=== PATIENT | female | born 1945 | race Caucasian/White ===

== ENCOUNTER 2016-06-02 12:58 | Inpatient (IN) | payer OTHER ==
[~2016-06-02] VITALS: Ht 160 cm; Wt 116.9 kg
[~2016-06-02 12:58] MED LIST: DICL75TA2 PO; GLIP5TAB13 PO; Hydrocodone Bit/Acetaminophen PO; LOSA25TA5 PO; METO-448 PO; MUPI15CR9 TOP; VANC2PLA IVPB
[2016-06-02] MEDS ORDERED: morphine 4 MG/ML VIAL IV STA (13:52)
[2016-06-02] MEDS ORDERED: ONDANSETRON 4 MG INJ IV STA (13:52)
[2016-06-02 14:14] LABS: BASOPHILS % 0.4 % (0.0-2.0); CONDITION 1; EOSINOPHILS # 0.3 10^3/ul (0.0-0.5); EOSINOPHILS % 3.1 % (0.0-7.0); HEMATOCRIT 42.2 % (37.0-47.0); HEMOGLOBIN 14.4 g/dl (12.0-16.0); LYMPHOCYTES % 37.3 % (15.0-51.0); MEAN CORPUSCULAR HGB CONC 34.1 g/dl (32.0-37.0); MEAN CORPUSCULAR VOLUME 93.8 fl (82.0-101.0); MEAN PLATELET VOLUME 8.6 fl (7.4-10.4); MONOCYTE # 0.7 10^3/ul (0.3-0.9); MONOCYTES % 8.2 % (0.0-11.0); NEUTROPHIL # 4.1 10^3/ul (1.6-7.5); PLATELET COUNT 224 10^3/UL (140-440); RED BLOOD COUNT 4.49 10^6/ul (4.20-5.40); RED CELL DISTRIBUTION WIDTH 13.7 % (11.5-14.5)
[2016-06-02 14:28] LABS: ALBUMIN 3.7 g/dl (3.3-4.9)
[2016-06-02 14:29] LABS: POTASSIUM 4.8 mmol/L (3.5-5.1)
[2016-06-02 14:31] LABS: BILIRUBIN,INDIRECT 0.2 mg/dl (0-1.1); BILIRUBIN,TOTAL 0.2 mg/dl (0.2-1.3); CREATININE 0.43 mg/dl (0.44-1.00)
[2016-06-02 14:32] LABS: ALBUMIN/GLOBULIN RATIO 1.08; TOTAL PROTEIN 7.1 g/dl (6.1-8.1)
--- NOTE | 2016-06-02 16:15 | RADRPT ---
PROCEDURE: CT Abdomen and pelvis without contrast. CLINICAL INDICATION: Abdominal Pain TECHNIQUE: CT scan of the abdomen and pelvis with contrast was performed on a multidetector high-r esolution CT scan. . Coronal and sagittal reformatted images were obtained from the axial source i mages. Standard CT scan of the abdomen pelvis without contrast protocols were performed. The total exam CTDI equals 22.68 mGy and the total exam DLP equals 1328.04 mGy-cm. One or more of the following dose reduction techniques were used: - Automated exposure control. - Adjustment of the mA and/or kV according to patient size. Use of iterative reconstruction technique. COMPARISON: None FINDINGS: The heart is within normal limits in size. There is a 3.4 x 2.4 cm inhomogeneous soft tissue densit y seen posterior to the left atrium and along the right lateral distal esophagus suspicious for a ma ss there is incompletely evaluated on this study. Recommend a CT scan of the chest with contrast fo r further evaluation. There is patchy parenchymal changes involving the right middle lobe and poste rior lower lobes likely all due to scarring. There is lower lobe cylindrical bronchiectasis. There is no evidence of basilar pleural effusions. There is coronary artery calcifications present. The re is mild atherosclerotic vascular disease of the abdominal aorta iliac arteries but no evidence of aneurysm. The pancreatic body head and proximal tail are unremarkable without focal lesions. The d istal pancreas is not visualized there are no surgical clips to suggest resection. The liver spleen adrenal glands and kidneys are normal in size configuration without focal lesions. There is increased density within the gallbladder suggesting sludge. There is no gallbladder wall thickening or pericholecystic fluid. No evidence biliary ductal dilation. Urinary bladder is unremarkable. The stomach, small bowel and large bowel are unremarkable. No CT scan evidence of appendicitis or d iverticulitis. No evidence of intra-abdominal free air free fluid abscesses or lymphadenopathy. Th ere is a small fat containing umbilical hernia but no herniated hour strangulation. There is mild t o moderate compression fracture of the L4 vertebral body likely chronic. Note that there is a lucen t changes involving the superior L4 and inferior L3 end plates with sclerotic margination suggesting Schmorl's node formation. Additional lucency along the posterior aspect of the L4 vertebral body w ith sclerotic margin may represent additional degenerative change however a lytic lesion cannot be e xcluded. Recommend consideration of a bone scan or an MRI of the lumbar spine with without contrast for further evaluation. Additional degenerative changes lower thoracic and lumbar spine but no other ev idence of fracture or destructive lesions. There is mild degenerative joint disease left hip. IMPRESSION: 1. There is 3.4 x 2.4 cm inhomogeneous soft tissue density seen posterior to the left atrium and al ino the right lateral distal esophagus suspicious for a mass that is incompletely evaluated on this study. Rule out neoplasm. Recommend a CT scan of the chest with contrast for further evaluation. 2. Increased density within the gallbladder likely all due to sludge. No gallbladder wall thicken ing or biliary ductal dilation. 3. Negative for intra-abdominal free air fluid abscesses lymphadenopathy obstructive uropathy or CT scans appendicitis or diverticulitis. Mild to moderate compression fracture the L4 vertebral body likely chronic with Schmorl's node formation. However there is additional lucency involving the pos terior aspect L4 vertebral body with sclerotic margin may represent additional degenerative changes or lytic lesion cannot be excluded and recommend confirmation consideration will bone scan or an MRI lumbar spine with and without contrast for further evaluation. 4. Small umbilical fat-containing hernia but no herniated bowel. RPTAT:AAJJ Physician Brock Date Time Electronically viewed and signed by Physician Brock on 06/02/2016 16:14 /
[2016-06-02] MEDS ORDERED: IOHEXOL 100 ML ONE (17:24)
[2016-06-02] MEDS ORDERED: SOD CHLORIDE 0.9% 100 ML ONE (17:24)
[2016-06-02] MEDS ORDERED: IOHEXOL 350MG/ML 50 ML BTL ONE (17:24)
[2016-06-02 17:34] VITALS: TEMP 98
[2016-06-02] MEDS ORDERED: ASPI-664 PO (18:28)
[2016-06-02] MEDS ORDERED: SULF500T36 PO (18:34)
[2016-06-02] MEDS ORDERED: FOLI-49 PO (18:36)
[2016-06-02] MEDS ORDERED: DICL75TA2 PO (18:39)
[2016-06-02] MEDS ORDERED: MET25 PO ×2 (18:39→18:45)
[2016-06-02] MEDS ORDERED: CLOP75TA4 PO (18:40)
[2016-06-02] MEDS ORDERED: METF1000 PO (18:40)
[2016-06-02] MEDS ORDERED: OMEP40CA6 PO (18:40)
[2016-06-02] MEDS ORDERED: HYDR200T5 PO (18:41)
[2016-06-02] MEDS ORDERED: INSU300I SQ (18:44)
[2016-06-02 18:50] LABS: ADD UMIC YES; URINE BILIRUBIN (Dip) NEGATIVE (NEGATIVE); URINE BLOOD (Dip) NEGATIVE (NEGATIVE); URINE COLOR LT. YELLOW (YELLOW); URINE KETONES (Dip) NEGATIVE (NEGATIVE); URINE LEUKOCYTE ESTERASE (Dip) NEGATIVE (NEGATIVE); URINE NITRITE (Dip) NEGATIVE (NEGATIVE); URINE TOTAL PROTEIN (Dip) 2+ (NEGATIVE); URINE UROBILINOGEN (Dip) 0.2 E.U./dL (0.1-1.0)
[2016-06-02 19:17] LABS: MUCUS,URINE RARE; URINE RBCS 0-2 /HPF (0)
[2016-06-02] MEDS ORDERED: HYDROmorphONE 1 MG/ML SYG IV STA (20:01)
--- NOTE | 2016-06-02 20:21 | RADRPT ---
PROCEDURE: CT Angiogram of the Chest, abdomen, and pelvis CLINICAL INDICATION: Evaluate for aortic dissection TECHNIQUE: Volumetric acquisition of the thorax, abdomen, and pelvis was performed following the i ntravenous administration of contrast with the bolus timing maximize arch opacification. One or more of the following dose reduction techniques were used: - Automated exposure control. - Adjustment of the mA and/or kV according to patient size. - Use of iterative reconstruction technique. Radiation Dose: CTDI = 41.55 mGy; DLP = 1244.61 mGy-cm. COMPARISON: To the previous CT scan of the abdomen and pelvis without contrast done 06/02/2016. FINDINGS: Lung olguin: There are no alveolar infiltrate or nodule is identified. There is reticulation extend ing to the lung periphery compatible with interstitial disease. There is a small area of honeycombi ng compatible with pulmonary fibrosis seen within the posterior segment of the right upper lobe infe riorly. The pleural spaces: No effusion or pneumothorax is identified. Lymph nodes: There is a subcarinal mass that measures 5.6 x 3.5 x 3.4 cm. There is a 1.0 cm in shor t diameter precarinal node. Pleural there is a 1 cm in short diameter inferior pretracheal node and more superiorly there are too more 1 cm in short diameter pretracheal nodes. Several 7 mm short di ameter bilateral axillary nodes are identified. Cardiovascular structures: The heart is normal in size. There is left ventricular hypertrophy. The pulmonary arteries appear patent. The aorta is normal in caliber and appears intact. There is ath erosclerotic vascular calcification. Mural plaquing within the inferior descending thoracic aorta. Thyroid: Unremarkable. Osseous structures: Mild degenerative spine changes are seen through the thoracic region. ABDOMEN: Liver: The liver is mildly enlarged but no focal lesion is evident. The hepatic and portal veins ar e patent. Gallbladder: The wall is not thickened. No radiopaque stones are identified. Bile ducts: The intra and extrahepatic bile ducts are normal in caliber. Pancreas: Appears normal with no mass or inflammation evident. Spleen: Normal in size with no focal lesion. Adrenals: Normal with no mass identified. Kidneys, ureters and bladder: The kidneys enhance normally and are normal in size and there is no ma ss, pathological calcification, or hydronephrosis evident. There is no perinephric stranding. The u reters are normal in caliber and no ureteroliths are identified. The bladder appears unremarkable. Reproductive organs: The uterus is absent and no adnexal mass is evident. Stomach, bowel, and Mesentery: The bowel appears unremarkable with no evidence of bowel obstruction or inflammation. The stomach appears unremarkable. Appendix: The vermiform appendix is not identified. Peritoneum: No free intraperitoneal fluid or air is identified. There is a small fat containing umbi lical hernia. Aorta: MVA abdominal aorta demonstrates some atherosclerotic plaquing but no aneurysm is identified. There is mild focal narrowing at the takeoff of the celiac 3 of the more distal artery is patent. The superior mesenteric artery is patent as are the bilateral renal arteries and the inferior mesen teric artery. Atherosclerotic calcification is seen to the common, internal and external iliac don chelle and common, external and deep femoral arteries. IVC: Unremarkable. Lymph nodes: No pathologically enlarged nodes are identified. Osseous structures: There is a mild compression fracture deformity involving the L4 vertebral body w ith mild retropulsion of the posterior superior corner and with Schmorl's nodes evident on either si de of the L3-L4 disk and with posterior spurring on the endplates. There is minimal depression of t he superior endplate of L2 without retro pulsion. Mild diffuse degenerative spine changes are noted . IMPRESSION: 1. The thoracic and abdominal aorta are normal in caliber without evidence of an aneurysm or dissec tion. Atherosclerotic mural plaquing is seen within the distal descending thoracic aorta and throug h the abdominal aorta with atherosclerotic calcification is seen through the iliac arteries and prox imal femoral arteries. There is a thin band-like narrowing at the takeoff of the celiac tree which is narrowed by approximately 50% in diameter. The superior mesenteric artery, inferior mesenteric a rtery and renal arteries appear patent. 2. The heart is not enlarged but there is left ventricular hypertrophy. The pulmonary arteries appe ar patent. 3. There is a subcarinal mass measuring 5.6 x 3.5 x 3.4 cm. 1 cm in short diameter nodes are seen within the precarinal region both superiorly and inferiorly. 7 mm in short diameter bilateral axill apoorva nodes are evident. 4. There is pulmonary interstitial disease with increased interstitial markings seen at the periphe ry of the lung olguin with a small area of honeycombing seen at the inferior aspect of the posterior segment of the right upper lobe compatible with pulmonary fibrosis. 5. Mild hepatomegaly, unchanged. 6. No evidence of bowel obstruction or inflammation. The vermiform appendix is not identified. 7. No evidence of urinary outflow obstruction. The ureters and bladder appear unremarkable. 8. Small fat containing umbilical hernia, unchanged. 9. Status post hysterectomy. 10. Compression fracture deformities involving L4 and to a lesser extent at L2, unchanged. Findings of a large subcarinal mass with pretracheal adenopathy were telephoned by Jessica Hawk to Dr. Pedro on 06/02/2016 at 2015 hours. Physician Junior Date Time Electronically viewed and signed by Physician Junior on 06/02/2016 20:20 RH/
[2016-06-02] MEDS ORDERED: HYDROCODONE/APAP (10/325) TAB PO ONE (21:30)
[2016-06-02] MEDS ORDERED: ONDANSETRON 4 MG INJ IV PRN (22:00)
[2016-06-02] MEDS ORDERED: ACETAMINOPHEN 325 MG TAB PO PRN (22:00)
--- NOTE | 2016-06-02 22:12 | ERA ---
ER Documentation Chief Complaint Date/Time DATE: 06/02/16 TIME: 22:03 Chief Complaint LEFT LOWER ABD PAIN. LAST BM 2 DAYS AGO HPI 71-year-old female with a history of hypertension, diabetes, and old spinal fracture presenting with left lower quadrant abdominal pain with associated left lower back and hip pain. Her symptoms started about 8 days ago. She has been having difficulty ambulating and taking care of herself secondary to the severe pain. She has been using some of her son's [place] was due to the pain. Usually she does not like to take any pain medications but the pain has been debilitating. She describes it as a stabbing, tearing pain, worse with any type of movement or walking, better with laying still. She has no associated dysuria, nausea, vomiting, fevers, recent trauma, hematuria or dysuria. She has not had a bowel movement in the past 2 days however she has been passing gas. She denies any chest pain or shortness of breath. She denies any associated numbness, weakness, or tingling in her bilateral lower extremities or lower back. ROS All systems reviewed and are negative except as per history of present illness. Medications Home Meds Reported Medications Methotrexate* (Methotrexate*) 2.5 Mg Tab, 15 MG PO Q7D, TAB 06/02/16 Insulin Glargine,Hum.rec.anlog (Lyn Webster) 300 Unit/1 Ml Insuln.pen, 35 UNIT SQ DAILY 06/02/16 Hydroxychloroquine Sulfate* (Plaquenil*) 200 Mg Tab, 200 MG PO BID, TAB 06/02/16 Omeprazole* (Omeprazole*) 40 Mg Capsule.dr, 40 MG PO DAILY, #30 CAP 06/02/16 Clopidogrel Bisulfate* (Clopidogrel Bisulfate*) 75 Mg Tablet, 75 MG PO DAILY, # 30 TAB 06/02/16 Metformin Hcl* (Metformin Hcl*) 1,000 Mg Tablet, 1000 MG PO WITH BREAKFAST DINNE , #60 TAB 06/02/16 Diclofenac Sodium* (Diclofenac Sodium*) 75 Mg Tablet.dr, 75 MG PO BID, #60 TAB 06/02/16 Folic Acid* (Folic Acid*) 1 Mg Tablet, 1 MG PO DAILY, TAB 06/02/16 Sulfasalazine (Sulfasalazine ) 500 Mg Tablet.dr, 2000 MG PO DAILY, #120 TAB 06/02/16 Aspirin* (Aspirin* EC) 81 Mg Tablet.dr, 81 MG PO DAILY, TAB 06/02/16 Discontinued Reported Medications Methotrexate* (Methotrexate*) 2.5 Mg Tab, 7.5 MG PO, TAB 06/02/16 Diclofenac Sodium* (Diclofenac Sodium*) 75 Mg Tablet.dr, 75 MG PO BID Y for PAIN , TAB 09/11/14 Losartan Potassium* (Losartan Potassium*) 25 Mg Tablet, 25 MG PO DAILY, TAB 09/11/14 Metoprolol Tartrate* (Lopressor*) 25 Mg Tab, 25 MG PO BID, TAB 09/11/14 Glipizide* (Glipizide*) 5 Mg Tablet, 10 MG PO QHS, TAB 09/11/14 Glipizide* (Glipizide*) 5 Mg Tablet, 15 MG PO QAM, TAB 09/11/14 Discontinued Scripts Vancomycin-NS (Vancomycin-NS) 2 Gm/250 Ml Plast..bag, 2 GM IVPB DAILY for 10 Days, EA Prov:ERNESTINE MORIN MD 09/15/14 Mupirocin Calcium* (Mupirocin*) 1 Applic Cr, 1 APPLIC TOP DAILY, #1 1 Refill Prov:ERNESTINE MORIN MD 09/15/14 [Hydrocodone Bit/Acetaminophen] 1 TAB TAB No Conflict Check, 1 TAB PO Q4H Y for PAIN, TAB Prov:ERNESTINE MORIN MD 09/15/14 Allergies Allergies: Coded Allergies: NSAIDS (Non-Steroidal Anti-Inflamma (Verified Allergy, Unknown, 06/02/16) Penicillins (Verified Allergy, Unknown, 06/02/16) PMhx/Soc History of Surgery: Yes (hysterectomy at age 31, vulva cancer, ) Anesthesia Reaction: No Hx Neurological Disorder: No Hx Respiratory Disorders: Yes (current smoker) Hx Cardiac Disorders: Yes (HTN) Hx Psychiatric Problems: No Hx Miscellaneous Medical Probl: Yes (RA, DIABETES, LOW BONE DESITY, HX BACK FX) Hx Alcohol Use: No Hx Substance Use: Yes (mariguana use) Hx Tobacco Use: Yes (7 cigs a day) FmHx Family History: No diabetes Physical Exam Vitals Vital Signs Date Time Temp Pulse Resp B/P Pulse Ox O2 Delivery O2 Flow Rate FiO2 06/02/16 19:48 73 18 182/82 100 Room Air 2/8/17 17:34 98.0 78 20 210/91 99 06/02/16 13:20 97.8 77 18 184/106 99 Physical Exam Const: Laying comfortably in bed without any distress, nontoxic Head: Atraumatic Eyes: Normal Conjunctiva ENT: Normal External Ears, Nose and Mouth. Neck: Full range of motion. No meningismus. Resp: Clear to auscultation bilaterally Cardio: Regular rate and rhythm, no murmurs Abd: Soft, non tender, non distended. Normal bowel sounds Skin: No petechiae or rashes Back: No midline tenderness to palpation, left lumbar paraspinal muscle tenderness and tenderness over the sacroiliac joint. Full range of motion of the left hip without pain. No tenderness of the left hip joint. There is no overlying erythema of the hip. No saddle anesthesia. Ext: No cyanosis, or edema. Right foot with multiple toe amputations. Neur: Awake and alert and oriented 3, cranial nerves intact, strength and sensations intact in all 4 extremities, unable to ambulate secondary to severe pain Psych: Normal Mood and Affect Result Diagram: 06/02/16 1400 06/02/16 1400 Results 24 hrs Laboratory Tests Test 06/02/16 14:00 06/02/16 17:20 06/02/16 20:12 Alanine Aminotransferase (ALT/SGPT) 27IU/L Albumin 3.7g/dl Albumin/Globulin Ratio 1.08 Alkaline Phosphatase 129IU/L Anion Gap 16 Aspartate Amino Transf (AST/SGOT) 23IU/L Basophils # 0.010^3/ul Basophils % 0.4% Blood Urea Nitrogen 14mg/dl Calcium Level 9.0mg/dl Carbon Dioxide Level 25mmol/L Chloride Level 102mmol/L Creatinine 0.43mg/dl Direct Bilirubin 0.00mg/dl Eosinophils # 0.310^3/ul Eosinophils % 3.1% Globulin 3.40g/dl Glucose Level 231mg/dl Hematocrit 42.2% Hemoglobin 14.4g/dl Indirect Bilirubin 0.2mg/dl Lymphocytes # 3.010^3/ul Lymphocytes % 37.3% Mean Corpuscular Hemoglobin 32.0pg Mean Corpuscular Hemoglobin Concent 34.1g/dl Mean Corpuscular Volume 93.8fl Mean Platelet Volume 8.6fl Monocytes # 0.710^3/ul Monocytes % 8.2% Neutrophils # 4.110^3/ul Neutrophils % 51.0% Nucleated Red Blood Cells # 0.010^3/ul Nucleated Red Blood Cells % 0.0/100WBC Platelet Count 67797^3/UL Potassium Level 4.8mmol/L Red Blood Count 4.4910^6/ul Red Cell Distribution Width 13.7% Sodium Level 138mmol/L Total Bilirubin 0.2mg/dl Total Protein 7.1g/dl White Blood Count 8.010^3/ul Urine Bilirubin NEGATIVE Urine Clarity CLEAR Urine Color LT. YELLOW Urine Glucose 0.5%% Urine Hemoglobin NEGATIVE Urine Ketones NEGATIVE Urine Leukocyte Esterase NEGATIVE Urine Microscopic RBC 0-2/HPF Urine Microscopic WBC NONE SEEN/HPF Urine Mucus RARE Urine Nitrite NEGATIVE Urine Specific [place] 1.020 Urine Total Protein 2+ Urine Urobilinogen 0.2 E.U./dL Urine pH 7.0 Bedside Glucose 102mg/dL Current Medications Medications (Trade) Dose Ordered Sig/Elvi Route PRN Reason Start Time Stop Time Status Last Admin Dose Admin Morphine Sulfate (morphine) 4 mg ONCE STAT IV 06/02/16 13:52 06/02/16 13:54 DC 06/02/16 14:48 Ondansetron HCl (Zofran Inj) 4 mg ONCE STAT IV 06/02/16 13:52 06/02/16 13:54 DC 06/02/16 14:48 IV Flush 10 ml 10 ml STK-MED ONCE .ROUTE 06/02/16 17:24 06/02/16 17:25 DC 06/02/16 19:15 Sodium Chloride 100 ml @ ud STK-MED ONCE .ROUTE 06/02/16 17:24 06/02/16 17:25 DC 06/02/16 19:25 Iohexol (Omnipaque) 100 ml @ ud STK-MED ONCE .ROUTE 06/02/16 17:24 06/02/16 17:25 DC 06/02/16 19:25 Iohexol (Omnipaque 350mg/ ml) 50 ml STK-MED ONCE .ROUTE 06/02/16 17:24 06/02/16 17:25 DC 06/02/16 19:25 Hydromorphone HCl (Dilaudid) 0.5 mg ONCE STAT IV 06/02/16 20:01 06/02/16 20:02 DC Acetaminophen/ Hydrocodone Bitart ([place] (10/325)) 1 tab ONCE ONCE PO 06/02/16 21:30 06/02/16 21:31 DC Ondansetron HCl (Zofran Inj) 4 mg BRIDGE ORDER PRN IV NAUSEA AND/OR VOMITING 06/02/16 22:00 06/03/16 21:59 Acetaminophen (Tylenol Tab) 650 mg ER BRIDGE PRN PO MILD PAIN/FEVER 06/02/16 22:00 06/03/16 21:59 Procedures/MDM Patient is presenting with 8 days of left lower quadrant and left lower back pain. Her vitals were notable for hypertension without fever. Patient's blood pressure was elevated (>120/80) but appears stable without evidence of hypertension emergency or urgency. Her left lower quadrant pain was concerning for acute diverticulitis versus bowel obstruction versus other colitis versus ureteral colic versus pyelonephritis. I have a lower suspicion for bowel ischemia or aortic dissection. Urinalysis did not show any evidence of infection. Labs were all within normal limits. A CT noncontrast of her abdomen and pelvis were done without evidence of acute intra-abdominal pathology. Given her severe and intractable pain, a CT angiogram of her chest, abdomen, and pelvis was done to evaluate for aortic dissection. Her scans did not reveal any evidence of acute aortic dissection or bowel ischemia, however the CT of her chest showed an incidental finding of a 5.6 cm subcarinal mass. This is concerning for neoplasm. I discussed the results with the patient and her son and told them that this was possibly cancer and that she would need further workup. I do not believe this is causing the patient's symptoms currently but needs urgent follow-up. They agreed to see their primary care doctor once she was home. However with regard to her lower back pain, I do not suspect any spinal emergency. Her pain is likely musculoskeletal. However as the patient has intractable pain and is unable to ambulate and take care of herself and is definitely a fall risk, I will admit her for pain control and further workup. Patient was given morphine and [place] for her pain. Patient and her son are agreeable with the plan for admission. Accepting Care Team: Current data and ongoing care discussed. Time: Time of admission Primary Provider: Gladys Consulting: none Outstanding Data: none Departure Diagnosis: Primary Impression: Left low back pain Qualified Code: M54.5 - Acute left-sided low back pain without sciatica Additional Impressions: Unable to ambulate Intrathoracic mass Condition: Fair JAZMIN BERRY MD Jun 02, 2016 22:12
[2016-06-02 23:08] VITALS: BMI 14.8
[2016-06-02 23:10] VITALS: BP 152/110; RESP 18
[2016-06-03] MEDS ORDERED: ONDANSETRON 4 MG INJ IV PRN (00:30)
[2016-06-03] MEDS ORDERED: ACETAMINOPHEN 325 MG TAB PO PRN (00:30)
[2016-06-03] MEDS ORDERED: GLUCOSE GEL 15 GRAM TUBE BUCCAL PRN (01:00)
[2016-06-03] MEDS ORDERED: DEXTROSE 50% 50 ML SYRINGE IV PRN ×2 (01:00)
[2016-06-03] MEDS ORDERED: GLUCOSE GEL 15 GRAM TUBE PO PRN ×2 (01:00)
[2016-06-03] MEDS ORDERED: GLUCAGON 1 MG INJ IM PRN (01:00)
[2016-06-03] MEDS: ZOLPIDEM 5 MG TAB PO PRN (01:30)
[2016-06-03] MEDS: INSULIN ASPART [NOVOLOG] 3 ML PEN SC SCH ×5 (01:39→21:07)
[2016-06-03] MEDS: ACCUCHECK XX SCH (02:00)
[2016-06-03] MEDS ORDERED: PANTOPRAZOLE (EC) 40 MG TAB PO SCH (06:00)
[2016-06-03 06:10] LABS: BASOPHILS % 0.2 % (0.0-2.0); EOSINOPHILS # 0.3 10^3/ul (0.0-0.5); EOSINOPHILS % 3.3 % (0.0-7.0); HEMATOCRIT 39.9 % (37.0-47.0); HEMOGLOBIN 13.7 g/dl (12.0-16.0); LYMPHOCYTES # 2.9 10^3/ul (0.8-2.9); LYMPHOCYTES % 27.3 % (15.0-51.0); MEAN CORPUSCULAR HEMOGLOBIN 32.2 pg (29.0-33.0); MEAN CORPUSCULAR HGB CONC 34.3 g/dl (32.0-37.0); MEAN CORPUSCULAR VOLUME 93.9 fl (82.0-101.0); MEAN PLATELET VOLUME 8.6 fl (7.4-10.4); MONOCYTE # 0.8 10^3/ul (0.3-0.9); NEUTROPHIL # 6.5 10^3/ul (1.6-7.5); NEUTROPHILS % 61.2 % (39.0-77.0); PLATELET COUNT 245 10^3/UL (140-440); RED BLOOD COUNT 4.25 10^6/ul (4.20-5.40); RED CELL DISTRIBUTION WIDTH 13.3 % (11.5-14.5); UNCORRECTED WBC 10.6 10^3/ul (4.8-10.8)
[2016-06-03 06:21] LABS: ALBUMIN 3.5 g/dl (3.3-4.9)
[2016-06-03 06:24] LABS: ALBUMIN/GLOBULIN RATIO 1.09; BILIRUBIN,INDIRECT 0.1 mg/dl (0-1.1); BILIRUBIN,TOTAL 0.1 mg/dl (0.2-1.3); CREATININE 0.49 mg/dl (0.44-1.00); TOTAL PROTEIN 6.7 g/dl (6.1-8.1)
[2016-06-03 06:25] LABS: CALCIUM 8.8 mg/dl (8.4-10.2); MAGNESIUM 1.7 mg/dl (1.7-2.5); PHOSPHORUS 4.5 mg/dl (2.5-4.9)
--- NOTE | 2016-06-03 06:39 | HP ---
Date/Time of Note Date/Time of Note DATE: 06/03/16 TIME: 06:19 Assessment/Plan VTE Prophylaxis VTE Prophylaxis Intervention: SCD's Lines/Catheters IV Catheter Type (from Nrsg): Saline Lock Assessment/Plan Assessment/Plan 1. Acute on Chronic Lower Back Pain, 2/2 Lumbar spine compression fx - pt's pain is likely 2/2 old spinal fx. There are no alarming signs of cord compression. Will provide pain medication. - Physical Therapy. - Neurosurgery consult as needed 2. Subcarinal mass measuring 5.6 x 3.5 x 3.4 cm - Will place a pulmonary consult, who also address # 3 3. Pulmonary Fibrosis - Cont home meds. pulmoary consult - oxygen, bronchodilators and steroid as needed 4. Type II Diabetes: insulin while inhouse 5. Hypertensive Urgency: cont med and adjust as needed 6. Hx of Right foot gangrene. 7. Hx of Peripheral vascular disease. HPI/ROS Admit Date/Time Admit Date/Time Jun 02, 2016 at 21:45 Hx of Present Illness 71-year-old female with a history of hypertension, diabetes, and old spinal fracture presenting with left lower quadrant abdominal pain with associated left lower back and hip pain. Her symptoms started about 8 days ago. She has been having difficulty ambulating and taking care of herself secondary to the severe pain. She has been using some of her son's [place] was due to the pain. Usually she does not like to take any pain medications but the pain has been debilitating. She describes it as a stabbing, tearing pain, worse with any type of movement or walking, better with laying still. She has no associated dysuria, nausea, vomiting, fevers, recent trauma, hematuria or dysuria. She has not had a bowel movement in the past 2 days however she has been passing gas. She denies any chest pain or shortness of breath. She denies any associated numbness, weakness, or tingling in her bilateral lower extremities or lower back. In ER, BP was as high as 210/91 and except glucose of ~230, CBC and CMP are WNL. CT pulmonary angiogram showed Compression fracture deformities involving L4 and to a lesser extent at L2. There is a subcarinal mass measuring 5.6 x 3.5 x 3.4 cm. 1 cm in short diameter nodes are seen within the precarinal region both superiorly and inferiorly. 7 mm in short diameter bilateral axillary nodes are evident. There is pulmonary interstitial disease with increased interstitial markings seen at the periphery of the lung olguin with a small area of honeycombing seen at the inferior aspect of the posterior segment of the right upper lobe compatible with pulmonary fibrosis. PLEASE SEE REPORT FOR COMPLETE RESULT. ALSO SEE CT ABD/PELVIS RESULT PMH/Family/Social Past Medical History 1. Right foot gangrene. 2. Right soft tissue infection. 3. Peripheral vascular disease. 4. Diabetes mellitus type 2. 5. Diabetes mellitus type 2 with peripheral vascular disease. 6. Hypertension. 7. Back pain 8. Lumbar Spine compression fx Social History Smoking Status: Former smoker Exam/Review of Systems Vital Signs Vitals Vital Signs Date Time Temp Pulse Resp B/P Pulse Ox O2 Delivery O2 Flow Rate FiO2 06/02/16 23:10 98.2 84 18 152/110 95 06/02/16 22:09 Room Air Exam Constitutional: alert, oriented Head: atraumatic, normocephalic Eyes: EOMI, PERRL Respiratory: clear to auscultation, crackles/rales, diminished breath sounds Cardiovascular: nl pulses, regular rate and rhythm Gastrointestinal: non-tender, soft Musculoskeletal: other (lower back pain tenderness without obvious deformity) Extremities: normal pulses Labs Result Diagram: 06/02/16 1400 06/02/16 1400 Medications Medications Current Medications Aspirin (Halfprin) 81 mg DAILY PO ; Start 06/03/16 at 09:00 Clopidogrel Bisulfate (plaVIX) 75 mg DAILY PO ; Start 06/03/16 at 09:00 Diclofenac Sodium (Voltaren) 75 mg BID PO ; Start 06/03/16 at 09:00 Folic Acid (Folic Acid) 1 mg DAILY PO ; Start 06/03/16 at 09:00 Hydroxychloroquine Sulfate (Plaquenil) 200 mg BID PO ; Start 06/03/16 at 09:00 Methotrexate (Methotrexate) 15 mg Fr@09 PO ; Start 06/04/16 at 09:00 Sulfasalazine (Azulfidine (Entab)) 2,000 mg DAILY PO ; Start 06/03/16 at 09:00 Famotidine (Pepcid) 20 mg BID PO ; Start 06/03/16 at 09:00 Diagnostic Test (Pha) (Accucheck) 1 ea 02 XX ; Start 06/03/16 at 02:00 Acetaminophen (Tylenol Tab) 650 mg Q6H PRN PO PAIN AND OR ELEVATED TEMP; Start 06/03/16 at 00:30 Morphine Sulfate (morphine) 4 mg Q4H PRN IV PAIN; Start 06/03/16 at 00:30 Acetaminophen/ Hydrocodone Bitart ([place] (10/325)) 1 tab Q6H PRN PO PAIN; Start 06/03/16 at 00:30 Ondansetron HCl (Zofran Inj) 4 mg Q6H PRN IV NAUSEA AND/OR VOMITING; Start 06/03 at 00:30 Miscellaneous Information 1 ea NOTE XX ; Start 06/03/16 at 01:00 Glucose (Glutose) 15 gm Q15M PRN PO DECREASED GLUCOSE; Start 06/03/16 at 01:00 Glucose (Glutose) 22.5 gm Q15M PRN PO DECREASED GLUCOSE; Start 06/03/16 at 01:00 Dextrose (D50w Syringe) 25 ml Q15M PRN IV DECREASED GLUCOSE; Start 06/03/16 at 01:00 Dextrose (D50w Syringe) 50 ml Q15M PRN IV DECREASED GLUCOSE; Start 06/03/16 at 01:00 Glucagon (Glucagen) 1 mg Q15M PRN IM DECREASED GLUCOSE; Start 06/03/16 at 01:00 Glucose (Glutose) 15 gm Q15M PRN BUCCAL DECREASED GLUCOSE; Start 06/03/16 at 01: 00 Insulin Glargine (Lantus) 20 unit HS SC ; Start 06/03/16 at 21:[address] pulmonary angio 1. The thoracic and abdominal aorta are normal in caliber without evidence of an aneurysm or dissection. Atherosclerotic mural plaquing is seen within the distal descending thoracic aorta and through the abdominal aorta with atherosclerotic calcification is seen through the iliac arteries and proximal femoral arteries. There is a thin band-like narrowing at the takeoff of the celiac tree which is narrowed by approximately 50% in diameter. The superior mesenteric artery, inferior mesenteric artery and renal arteries appear patent. 2. The heart is not enlarged but there is left ventricular hypertrophy. The pulmonary arteries appear patent. 3. There is a subcarinal mass measuring 5.6 x 3.5 x 3.4 cm. 1 cm in short diameter nodes are seen within the precarinal region both superiorly and inferiorly. 7 mm in short diameter bilateral axillary nodes are evident. 4. There is pulmonary interstitial disease with increased interstitial markings seen at the periphery of the lung olguin with a small area of honeycombing seen at the inferior aspect of the posterior segment of the right upper lobe compatible with pulmonary fibrosis. 5. Mild hepatomegaly, unchanged. 6. No evidence of bowel obstruction or inflammation. The vermiform appendix is not identified. 7. No evidence of urinary outflow obstruction. The ureters and bladder appear unremarkable. 8. Small fat containing umbilical hernia, unchanged. 9. Status post hysterectomy. 10. Compression fracture deformities involving L4 and to a lesser extent at L2 , unchanged. CT abd/pelvis 1. There is 3.4 x 2.4 cm inhomogeneous soft tissue density seen posterior to the left atrium and along the right lateral distal esophagus suspicious for a mass that is incompletely evaluated on this study. Rule out neoplasm. Recommend a CT scan of the chest with contrast for further evaluation. 2. Increased density within the gallbladder likely all due to sludge. No gallbladder wall thickening or biliary ductal dilation. 3. Negative for intra-abdominal free air fluid abscesses lymphadenopathy obstructive uropathy or CT scans appendicitis or diverticulitis. Mild to moderate compression fracture the L4 vertebral body likely chronic with Schmorl' s node formation. However there is additional lucency involving the posterior aspect L4 vertebral body with sclerotic margin may represent additional degenerative changes or lytic lesion cannot be excluded and recommend confirmation consideration will bone scan or an MRI lumbar spine with and without contrast for further evaluation. 4. Small umbilical fat-containing hernia but no herniated bowel. GIO VIEYRA MD Jun 03, 2016 06:30
[2016-06-03 07:11] LABS: CONDITION 1; WHITE BLOOD COUNT 10.6 10^3/ul (4.8-10.8)
[2016-06-03 07:20] VITALS: BP 135/83; RESP 18
[2016-06-03] MEDS: HYDROCODONE/APAP (10/325) TAB PO PRN ×2 (07:50→14:38)
[2016-06-03] MEDS: HYDROXYCHLOROQUINE 200 MG TAB PO SCH ×2 (08:46→22:21)
[2016-06-03] MEDS: FOLIC ACID 1 MG TAB PO SCH (08:46)
[2016-06-03] MEDS: morphine 4 MG/ML VIAL IV PRN ×2 (08:46→19:27)
[2016-06-03] MEDS: FAMOTIDINE 20 MG TAB PO SCH ×2 (08:47→21:02)
[2016-06-03] MEDS: CLOPIDOGREL 75 MG TAB PO SCH (08:47)
[2016-06-03] MEDS: ASPIRIN (EC) 81 MG TAB PO SCH (08:47)
[2016-06-03] MEDS: DICLOFENAC (EC) 75 MG TAB PO SCH ×2 (08:48→22:21)
[2016-06-03] MEDS ORDERED: [UNRECOGNIZED DRUG - OTHER] SQ SCH (09:00)
[2016-06-03] MEDS ORDERED: INSULIN GLARGINE HUM REC ANLOG 35 UNIT SQ SCH (09:00)
[2016-06-03] MEDS: SULFASALAZINE (EC) 500 MG TAB PO SCH ×2 (09:00→13:57)
[2016-06-03] MEDS ORDERED: ZOLPIDEM 5 MG TAB PO PRN (12:45)
--- NOTE | 2016-06-03 13:28 | PN ---
Date/Time of Note Date/Time of Note DATE: 06/03/16 TIME: 13:22 Assessment/Plan VTE Prophylaxis VTE Prophylaxis Intervention: LMWH Lines/Catheters IV Catheter Type (from Nrs): Saline Lock Assessment/Plan Chief Complaint/Hosp Course Assessment/Plan 1. Acute on Chronic Lower Back Pain, 2/2 Lumbar spine compression fx - pt's pain is likely 2/2 old spinal fx. There are no alarming signs of cord compression. Will provide pain medication. -Obtain MRI of the lumbar sacral to rule out malignancy - Physical Therapy. - Neurosurgery consult as needed 2. Subcarinal mass measuring 5.6 x 3.5 x 3.4 cm - pulmonary consult, who also address # 3 -Cardiothoracic surgeon has been consulted, will set up patient to obtain PET scan as outpatient 3. Pulmonary Fibrosis - Cont home meds. pulmoary consult - oxygen, bronchodilators and steroid as needed -Plan for pulmonary function tests as outpatient 4. Type II Diabetes: insulin while inhouse 5. Hypertensive Urgency: cont med and adjust as needed 6. Hx of Right foot gangrene. 7. Hx of Peripheral vascular disease. We will continue monitor patient closely for recommendation management treatment as clinical course Plan to discharge patient to halfway facility tomorrow Patient needs to be set up by healthcare partner rifle case repairer for PET and pulmonary function tests as outpatient Problems: Subjective 24 Hr Interval Summary Free Text/Dictation Patient continues to complain of having low back pain and left hip pain Tolerating oral intake Exam/Review of Systems Vital Signs Vitals Vital Signs Date Time Temp Pulse Resp B/P Pulse Ox O2 Delivery O2 Flow Rate FiO2 06/03/16 07:20 97.8 82 18 135/83 96 06/02/16 22:09 Room Air Intake and Output 06/02/16 06/02/16 06/03/16 15:00 23:00 07:00 Intake Total 240 ml Output Total 400 ml Balance -160 ml Exam General: The patient is morbidly obese, Not in acute distress. HEENT: Atraumatic, normocephalic. The pupils are equal and round . Neck: Supple with full range of motion. Chest: Normal expansion of the thorax during inspiration Lungs: Clear to auscultation bilaterally Heart: Normal S1-S2, Regular rhythm and rate. Abdomen: Soft , nontender, nondistended , bowel sounds are present. Extremities: Right foot status post toes amputation, no edema no cyanosis Neurologic: Normal mental status,The patient is awake, alert and oriented . Results Result Diagram: 06/03/16 0520 06/03/16 0520 Results 24 hrs Laboratory Tests Test 06/02/16 14:00 06/02/16 17:20 06/02/16 20:12 06/02/16 23:05 Alanine Aminotransferase (ALT/SGPT) 27 Albumin 3.7 Albumin/Globulin Ratio 1.08 Alkaline Phosphatase 129 H Anion Gap 16 Aspartate Amino Transf (AST/SGOT) 23 Basophils # 0.0 Basophils % 0.4 Blood Urea Nitrogen 14 Calcium Level 9.0 Carbon Dioxide Level 25 Chloride Level 102 Creatinine 0.43 L Direct Bilirubin 0.00 Eosinophils # 0.3 Eosinophils % 3.1 Globulin 3.40 H Glucose Level 231 H Hematocrit 42.2 # Hemoglobin 14.4 # Indirect Bilirubin 0.2 Lymphocytes # 3.0 H Lymphocytes % 37.3 Mean Corpuscular Hemoglobin 32.0 Mean Corpuscular Hemoglobin Concent 34.1 Mean Corpuscular Volume 93.8 Mean Platelet Volume 8.6 Monocytes # 0.7 Monocytes % 8.2 Neutrophils # 4.1 Neutrophils % 51.0 Nucleated Red Blood Cells # 0.0 Nucleated Red Blood Cells % 0.0 Platelet Count 224 Potassium Level 4.8 Red Blood Count 4.49 # Red Cell Distribution Width 13.7 Sodium Level 138 Total Bilirubin 0.2 Total Protein 7.1 White Blood Count 8.0 # Urine Bilirubin NEGATIVE Urine Clarity CLEAR Urine Color LT. YELLOW Urine Glucose 0.5% H Urine Hemoglobin NEGATIVE Urine Ketones NEGATIVE Urine Leukocyte Esterase NEGATIVE Urine Microscopic RBC 0-2 Urine Microscopic WBC NONE SEEN Urine Mucus RARE Urine Nitrite NEGATIVE Urine Specific [place] 1.020 Urine Total Protein 2+ H Urine Urobilinogen 0.2 E.U./dL Urine pH 7.0 Bedside Glucose 102 216 Test 06/03/16 05:20 06/03/16 07:47 06/03/16 11:08 Alanine Aminotransferase (ALT/SGPT) 32 Albumin 3.5 Albumin/Globulin Ratio 1.09 Alkaline Phosphatase 115 Anion Gap 14 Aspartate Amino Transf (AST/SGOT) 22 Basophils # 0.0 Basophils % 0.2 Blood Urea Nitrogen 15 Calcium Level 8.8 Carbon Dioxide Level 26 Chloride Level 102 Creatinine 0.49 Direct Bilirubin 0.00 Eosinophils # 0.3 Eosinophils % 3.3 Globulin 3.20 Glucose Level 247 H Hematocrit 39.9 Hemoglobin 13.7 Indirect Bilirubin 0.1 Lymphocytes # 2.9 Lymphocytes % 27.3 Magnesium Level 1.7 Mean Corpuscular Hemoglobin 32.2 Mean Corpuscular Hemoglobin Concent 34.3 Mean Corpuscular Volume 93.9 Mean Platelet Volume 8.6 Monocytes # 0.8 Monocytes % 8.0 Neutrophils # 6.5 Neutrophils % 61.2 Nucleated Red Blood Cells # 0.0 Nucleated Red Blood Cells % 0.0 Phosphorus Level 4.5 Platelet Count 245 Potassium Level 4.0 Red Blood Count 4.25 Red Cell Distribution Width 13.3 Sodium Level 138 Total Bilirubin 0.1 L Total Protein 6.7 White Blood Count 10.6 # Bedside Glucose 209 225 H Medications Medications Current Medications Aspirin (Halfprin) 81 mg DAILY PO Last administered on 06/03/16 08:47; Admin Dose 81 MG; Start 06/03/16 at 09:00 Clopidogrel Bisulfate (plaVIX) 75 mg DAILY PO Last administered on 06/03/16 08: 47; Admin Dose 75 MG; Start 06/03/16 at 09:00 Diclofenac Sodium (Voltaren) 75 mg BID PO Last administered on 06/03/16 08:48; Admin Dose 75 MG; Start 06/03/16 at 09:00 Folic Acid (Folic Acid) 1 mg DAILY PO Last administered on 06/03/16 08:46; Admin Dose 1 MG; Start 06/03/16 at 09:00 Hydroxychloroquine Sulfate (Plaquenil) 200 mg BID PO Last administered on 08:46; Admin Dose 200 MG; Start 06/03/16 at 09:00 Methotrexate (Methotrexate) 15 mg Fr@09 PO ; Start 06/04/16 at 09:00 Sulfasalazine (Azulfidine (Entab)) 2,000 mg DAILY PO ; Start 06/03/16 at 09:00 Famotidine (Pepcid) 20 mg BID PO Last administered on 06/03/16 08:47; Admin Dose 20 MG; Start 06/03/16 at 09:00 Diagnostic Test (Pha) (Accucheck) 1 ea 02 XX ; Start 06/03/16 at 02:00 Acetaminophen (Tylenol Tab) 650 mg Q6H PRN PO PAIN AND OR ELEVATED TEMP; Start 06/03/16 at 00:30 Morphine Sulfate (morphine) 4 mg Q4H PRN IV PAIN Last administered on 06/03/16 08:46; Admin Dose 4 MG; Start 06/03/16 at 00:30 Acetaminophen/ Hydrocodone Bitart ([place] (10/325)) 1 tab Q6H PRN PO PAIN Last administered on 06/03/16 07:50; Admin Dose 1 TAB; Start 06/03/16 at 00:30 Ondansetron HCl (Zofran Inj) 4 mg Q6H PRN IV NAUSEA AND/OR VOMITING; Start 06/03 at 00:30 Miscellaneous Information 1 ea NOTE XX ; Start 06/03/16 at 01:00 Glucose (Glutose) 15 gm Q15M PRN PO DECREASED GLUCOSE; Start 06/03/16 at 01:00 Glucose (Glutose) 22.5 gm Q15M PRN PO DECREASED GLUCOSE; Start 06/03/16 at 01:00 Dextrose (D50w Syringe) 25 ml Q15M PRN IV DECREASED GLUCOSE; Start 06/03/16 at 01:00 Dextrose (D50w Syringe) 50 ml Q15M PRN IV DECREASED GLUCOSE; Start 06/03/16 at 01:00 Glucagon (Glucagen) 1 mg Q15M PRN IM DECREASED GLUCOSE; Start 06/03/16 at 01:00 Glucose (Glutose) 15 gm Q15M PRN BUCCAL DECREASED GLUCOSE; Start 06/03/16 at 01: 00 Insulin Glargine (Lantus) 20 unit HS SC ; Start 06/03/16 at 21:00 MARCO MONTGOMERY MD Jun 03, 2016 13:28
--- NOTE | 2016-06-03 14:09 | CONS ---
DATE OF ADMISSION: 06/02/2016 DATE OF CONSULTATION: 06/03/2016 TYPE OF CONSULTATION: Pulmonary. REASON FOR CONSULT: Abnormal chest CT. Thank you, Dr. Nicolas, for this consultation. REASON FOR CONSULTATION: Agitated, abnormal chest CT. HISTORY OF PRESENT ILLNESS: This is a pleasant 71-year-old lady with multiple medical problems incl uding morbid obesity, probable obstructive sleep apnea, diabetes, hypertension, hyperlipidemia, came in with lower abdominal pain and left hip pain which she has been having for several weeks. Pain i s localized, sharp, stabbing in nature, causing patient difficulty when walking. No history of falls , trauma. No hemoptysis, no hematemesis. She has an extensive tobacco history, smoked 1 pack per d ay for 40+ years, quit smoking several years ago. CT of the chest was performed demonstrated compression fracture L2 but also a subcarinal mass versus lymph node 5.6 cm x 3.5 cm x 3.4 cm. The patient also has mild lymphadenopathy. In addition, she has evidence of pulmonary fibrosis. PAST MEDICAL HISTORY: Lower extremity gangrene, peripheral vascular disease, diabetes, hypertension , hyperlipidemia, lumbar fractures. SOCIAL HISTORY: She is an ex-smoker with morbid obesity. MEDICATIONS: Per chart. ALLERGIES: NONE. SOCIAL HISTORY: Tobacco history as above. Occasional alcohol, no history of drug use. FAMILY HISTORY: Noncontributory. SYSTEMS REVIEW: A 12-point review of systems was negative other than that mentioned above. PHYSICAL EXAMINATION: GENERAL: Obese lady, comfortable at rest, talking in full and complete sentences. VITAL SIGNS: Temperature 98, pulse 82, blood pressure 135/83, O2 saturation 96% on room air. NECK: Supple. No JVD or lymphadenopathy. CARDIAC: S1, S2, no added sounds or murmurs. CHEST: Diminished air entry bilaterally. ABDOMEN: Soft, nontender. No guarding or rebound. EXTREMITIES: No cyanosis, clubbing or edema. NEUROLOGIC: Grossly intact. No focal deficits. LABORATORIES: White count 10.6, hemoglobin 13.7, platelets 245, BUN 15, creatinine 0.49. DIAGNOSTIC STUDIES: Chest CT shows subcarinal mass 5.6 x 2.5 x 3.4 with evidence of interstitial donald ng disease. IMPRESSION AND PLAN: 1. Lower extremity hip pain, possibly secondary to L5 compression fracture. 2. Subcarinal mass with a history of tobacco use, concerning for possible malignancy. 3. Interstitial fibrosis. 4. Obstructive sleep apnea. 5. Morbid obesity. The patient will require: 1. Pulmonary function testing. 2. Consider PET CT to evaluate mass and lymphadenopathy. 3. Will likely need a mediastinoscopy with biopsy and staging when stable. Dictated By: MINH MARCUS/KIN Conf#: [id number] DID#: [id number]
--- NOTE | 2016-06-03 15:02 | CONS ---
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 She was incidentally found to have a subcarinal mass measuring 5.6 x 3.5 x 3.[address] abdomen/pelvis without contrast demonstrated mild to moderate chronic compression fracture at L4 and an additional lucency involving the posterior aspect L4 vertebral body with sclerotic margin that may represent additional degenerative changes or lytic lesion, with recommendation for bone scan or MRI lumbar spine. - Patient has questionable lytic lesion in L4, query whether may represent lytic met from lung cancer, pending MRI lumbar spine to further evaluate - Will request outpatient PET/CT - Depending on PET/CT and MRI results, will biopsy primary lesion or other lesion if extrathoracic disease found - Appreciate pulm mets for PFT testing and mediastinoscopy with biopsy and staging when stable - MRI brain ordered for staging - Case management order placed for auth for outpatient PET/CT and appt to see Dr. 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 She was incidentally found to have a subcarinal mass measuring 5.6 x 3.5 x 3.[address] abdomen/pelvis without contrast demonstrated mild to moderate chronic compression fracture at L4 and an additional lucency involving the posterior aspect L4 vertebral body with sclerotic margin that may represent additional degenerative changes or lytic lesion, with recommendation for bone scan or MRI lumbar spine. The patient states that she has not been able to walk since the onset of her hip pain 9 days ago but was previously active and ambulatory, able to walk her dogs, cook, drive, shop and perform all ADL's. She denies weight loss and in fact has gained 60 pounds since toe amputation as less mobile. She denies significant dyspnea, or cough since she quit smoking. 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, and history of vulvar cancer s/p surgery three years ago at [place] with no further therapy Family History Significant Family History: cancer (maternal grandfather had cancer in late 60s of unknown origin) Social History Smoking Status: Former smoker (smoked 50 years x 1 ppd, quit 2 years ago, no significant alcohol except in her 20s) Exam/Review of Systems Vital Signs Vitals Vital Signs Date Time Temp Pulse Resp B/P Pulse Ox O2 Delivery O2 Flow Rate FiO2 06/03/16 07:20 97.8 82 18 135/83 96 06/02/16 22:09 Room Air Intake and Output 06/02/16 06/02/16 06/03/16 15:00 23:00 07:00 Intake Total 240 ml Output Total 400 ml Balance -160 ml Exam Constitutional: alert, oriented Head: atraumatic, normocephalic Eyes: nl conjunctiva Neck: non-tender, supple Respiratory: clear to auscultation Cardiovascular: regular rate and rhythm Gastrointestinal: non-tender, soft Musculoskeletal: other (s/p right toes amputation) Results Result Diagram: 06/03/16 0520 06/03/16 0520 Results 24 hrs Laboratory Tests Test 06/02/16 17:20 06/02/16 20:12 06/02/16 23:05 06/03/16 05:20 Urine Bilirubin NEGATIVE Urine Clarity CLEAR Urine Color LT. YELLOW Urine Glucose 0.5% H Urine Hemoglobin NEGATIVE Urine Ketones NEGATIVE Urine Leukocyte Esterase NEGATIVE Urine Microscopic RBC 0-2 Urine Microscopic WBC NONE SEEN Urine Mucus RARE Urine Nitrite NEGATIVE Urine Specific [place] 1.020 Urine Total Protein 2+ H Urine Urobilinogen 0.2 E.U./dL Urine pH 7.0 Bedside Glucose 102 216 Alanine Aminotransferase (ALT/SGPT) 32 Albumin 3.5 Albumin/Globulin Ratio 1.09 Alkaline Phosphatase 115 Anion Gap 14 Aspartate Amino Transf (AST/SGOT) 22 Basophils # 0.0 Basophils % 0.2 Blood Urea Nitrogen 15 Calcium Level 8.8 Carbon Dioxide Level 26 Chloride Level 102 Creatinine 0.49 Direct Bilirubin 0.00 Eosinophils # 0.3 Eosinophils % 3.3 Globulin 3.20 Glucose Level 247 H Hematocrit 39.9 Hemoglobin 13.7 Indirect Bilirubin 0.1 Lymphocytes # 2.9 Lymphocytes % 27.3 Magnesium Level 1.7 Mean Corpuscular Hemoglobin 32.2 Mean Corpuscular Hemoglobin Concent 34.3 Mean Corpuscular Volume 93.9 Mean Platelet Volume 8.6 Monocytes # 0.8 Monocytes % 8.0 Neutrophils # 6.5 Neutrophils % 61.2 Nucleated Red Blood Cells # 0.0 Nucleated Red Blood Cells % 0.0 Phosphorus Level 4.5 Platelet Count 245 Potassium Level 4.0 Red Blood Count 4.25 Red Cell Distribution Width 13.3 Sodium Level 138 Total Bilirubin 0.1 L Total Protein 6.7 White Blood Count 10.6 # Test 06/03/16 07:47 06/03/16 11:08 Bedside Glucose 209 225 H Medications Medications Current Medications Aspirin (Halfprin) 81 mg DAILY PO Last administered on 06/03/16 08:47; Admin Dose 81 MG; Start 06/03/16 at 09:00 Clopidogrel Bisulfate (plaVIX) 75 mg DAILY PO Last administered on 06/03/16 08: 47; Admin Dose 75 MG; Start 06/03/16 at 09:00 Diclofenac Sodium (Voltaren) 75 mg BID PO Last administered on 06/03/16 08:48; Admin Dose 75 MG; Start 06/03/16 at 09:00 Folic Acid (Folic Acid) 1 mg DAILY PO Last administered on 06/03/16 08:46; Admin Dose 1 MG; Start 06/03/16 at 09:00 Hydroxychloroquine Sulfate (Plaquenil) 200 mg BID PO Last administered on 08:46; Admin Dose 200 MG; Start 06/03/16 at 09:00 Methotrexate (Methotrexate) 15 mg Fr@09 PO ; Start 06/04/16 at 09:00 Sulfasalazine (Azulfidine (Entab)) 2,000 mg DAILY PO ; Start 06/03/16 at 09:00 Famotidine (Pepcid) 20 mg BID PO Last administered on 06/03/16 08:47; Admin Dose 20 MG; Start 06/03/16 at 09:00 Diagnostic Test (Pha) (Accucheck) 1 ea 02 XX ; Start 06/03/16 at 02:00 Acetaminophen (Tylenol Tab) 650 mg Q6H PRN PO PAIN AND OR ELEVATED TEMP; Start 06/03/16 at 00:30 Morphine Sulfate (morphine) 4 mg Q4H PRN IV PAIN Last administered on 06/03/16 08:46; Admin Dose 4 MG; Start 06/03/16 at 00:30 Acetaminophen/ Hydrocodone Bitart ([place] (10/325)) 1 tab Q6H PRN PO PAIN Last administered on 06/03/16 07:50; Admin Dose 1 TAB; Start 06/03/16 at 00:30 Ondansetron HCl (Zofran Inj) 4 mg Q6H PRN IV NAUSEA AND/OR VOMITING; Start 06/03 at 00:30 Miscellaneous Information 1 ea NOTE XX ; Start 06/03/16 at 01:00 Glucose (Glutose) 15 gm Q15M PRN PO DECREASED GLUCOSE; Start 06/03/16 at 01:00 Glucose (Glutose) 22.5 gm Q15M PRN PO DECREASED GLUCOSE; Start 06/03/16 at 01:00 Dextrose (D50w Syringe) 25 ml Q15M PRN IV DECREASED GLUCOSE; Start 06/03/16 at 01:00 Dextrose (D50w Syringe) 50 ml Q15M PRN IV DECREASED GLUCOSE; Start 06/03/16 at 01:00 Glucagon (Glucagen) 1 mg Q15M PRN IM DECREASED GLUCOSE; Start 06/03/16 at 01:00 Glucose (Glutose) 15 gm Q15M PRN BUCCAL DECREASED GLUCOSE; Start 06/03/16 at 01: 00 Insulin Glargine (Lantus) 20 unit HS SC ; Start 06/03/16 at 21:00 JONATHAN SOUZA MD Jun 03, 2016 14:53
--- NOTE | 2016-06-03 16:14 | RADRPT ---
PROCEDURE: MRI Brain without contrast. CLINICAL INDICATION: Pain, history of vaginal cancer, evaluate for metastasis. TECHNIQUE: An MRI of the brain was performed utilizing the following sequences: Sagittal and axial T1 weighted, axial T2 weighted, axial diffusion weighted with ADC mapping, coronal GRE, and axial F LAIR. COMPARISON: None available. FINDINGS: No diffusion weighted abnormalities are seen to suggest the presence of acute ischemia or recent inf arct. No hypointense signal abnormalities are seen on the GRE images to suggest the presence of blo od degradation products. There is no evidence of intracranial hemorrhage, mass effect, or midline s hift. No extra-axial fluid collections are seen. The ventricles and sulci are mildly enlarged indica tive of volume loss. There are mild scattered foci of T2 FLAIR hyperintensity in the periventricular, deep, and subcortic al white matter, which are nonspecific in etiology but likely reflect chronic small vessel ischemic changes. Small T2 hyperintense foci are noted in bilateral thalami and lentiform nuclei which likely represen t dilated perivascular spaces versus old lacunar infarcts. No abnormal intracranial vascular flow void is noted. The visualized paranasal sinuses demonstrate m ild scattered mucosal thickening. IMPRESSION: 1. No acute intracranial hemorrhage or infarction. No intracranial mass or suspicious signal abnorm ality to suggest intracranial metastasis. Please note MRI with contrast is more sensitive for detect ion of metastasis and can be obtained as clinically warranted. 2. Mild chronic small vessel ischemic changes. 3. Mild generalized cerebral volume loss. 4. Mild scattered paranasal sinus disease. RPTAT: HH .Maria Isabel Siu MD, MD Date Time Electronically viewed and signed by .Maria Isabel Siu MD, MD on 06/03/2016 16:14 .N/
--- NOTE | 2016-06-03 16:54 | RADRPT ---
PROCEDURE: MRI lumbar spine with and without contrast CLINICAL INDICATION: Severe low back pain with prior history of L2 and L4 vertebral body fractures . TECHNIQUE: An MRI of the lumbar spine was performed on a high-resolution hi-definition 3.0 [facility] scanner utilizing the following sequences: pre and post contrast sagittal and axial T1 weighted, sagittal and axial T2 weighted, and sagittal T2 weighted with fat saturation. 10 cc of Magnevist wer e given intravenously without complication. COMPARISON: No relevant priors for comparison FINDINGS: There is a normal lordosis of the lumbar spine. the vertebral body heights demonstrate approximate ly 12% vertebral body height loss at L2 and 50% vertebral body height loss at L4 which is compatible with the previously described history of L2 and L4 vertebral body fractures. The compression fractu res at L2 and L4 appear acute. The signal intensities of these vertebral bodies demonstrate decrease d signal on L2 on the T1 and T2-weighted sequences with increased signal on T2 fat saturation. In a ddition foci of decreased signal in the posterior L3 and L4 vertebral body with increased signal on T2 fat saturation sequences. Following contrast administration enhancement in these vertebral tarsha s at L2-L4 levels are noted. This most compatible with contusions. Prominent Schmorl's nodes are a lso present at the inferior endplate of L3 and superior endplate of L4. No evidence for retropulsio n into the spinal canal is present. Axial imaging is limited secondary to loss of signal from coil and patient's body habitus. The intervertebral discs demonstrate mild disk space height loss and L1 -2 with disk desiccation at L2-3 and centrally at L4-5 and L5-S1. Mild apparent increased disk spac e height at L3-4 is noted secondary to L4 acute vertebral body compression fracture. The conus med ullaris is barely visible at the L1 level, and is normal in appearance. Other than the enhancing fatou ne contusions fractures at L2 and L4 as well as the Schmorl's node at L3 no other enhancement is pre sent following contrast administration. The imaged portions of the conus in the leptomeninges and c auda quinine are normal. The specific axial levels are difficult to evaluate secondary to loss of signal and body habitus. O n sagittal imaging the appearance of a focal central disk extrusion at L1-2 is present which is inco mpletely evaluated on axials secondary to above. A moderate central canal stenosis is present and c orrelate with additional MR imaging on an open lower field magnet or CT. Also noted on sagittal shiela ging is a moderate osteophytic bar and bulge at L3-4 with mild central canal stenosis. No evidence for stenosis is noted at the remaining levels. IMPRESSION: 1. Limited lumbar spine MRI secondary to patient's body habitus and loss of signal to noise with co il utilized. Recommend follow-up MR imaging with an open MRI lower field magnet or CT. 2. Acute compression fracture deformities of L2 and L4 as described above without retropulsion into the spinal canal. 3. Central disk extrusion at the L1-2 level with moderate central canal stenosis. 4. Mild osteophytic bar and bulge at the L3-4 level with mild central canal stenosis. RPTAT: HDC .Afsaneh Ragsdale MD, Date Time Electronically viewed and signed by .Afsaneh Ragsdale MD, on 06/03/2016 16:53 .C/
[2016-06-03] MEDS: INSULIN GLARGINE [LANtus] 3 ML PEN SC SCH (21:05)
[2016-06-03 21:11] VITALS: BP 162/70; RESP 18
--- NOTE | 2016-06-04 00:13 | CONS ---
DATE OF ADMISSION: 06/02/2016 DATE OF CONSULTATION: TYPE OF CONSULTATION: Cardiothoracic. REASON FOR CONSULTATION: Mediastinal mass. Thank you Dr. Nicolas for asking me to see this patient. HISTORY OF PRESENT ILLNESS: This is a 71-year-old female with an extensive history of smoking in e past. The patient was admitted because of a left hip pain. Part of her workup has included a CAT scan of the chest which has showed a 5.6 cm subcarinal posterior mediastinal mass. Patient also rosas d an MRI of the lumbar spine which showed acute compression fracture of L2 and L4. The patient had a CT of the abdomen, which again showed a 3.4 cm mass posterior to the left atrium and MRI of the brain which showed no evidence of any intr acranial masses suggestive of carcinoma. The patient denies any shortness of breath, chest pain. PAST MEDICAL HISTORY: Significant for lower extremity gangrene, peripheral vascular disease, diabet es, hypertension, obesity, hyperlipidemia, lumbar fracture. PAST SURGICAL HISTORY: None. ALLERGIES: NONE. SOCIAL HISTORY: Positive for extensive smoking in the past. PHYSICAL EXAMINATION: VITAL SIGNS: Blood pressure is 162/70, pulse 74, respirations 18, saturation is 93% on room air. CARDIOVASCULAR: Normal S1, S2. No murmurs, gallops or rubs. LUNGS: Clear. ABDOMEN: Soft. EXTREMITIES: Warm. LABORATORY VALUES: Hemoglobin 13.7, white count 10.6, platelet count 245, creatinine 0.49. IMPRESSION: Mediastinal mass. RECOMMENDATIONS: I had a long discussion with the patient, this unusually large and nonhomogeneous. In my opinion it is neoplastic until proven otherwise. She needs to have a biopsy. I had a long di scussion with the patient and the son. Risks and benefits were explained to them. They would like t o go home and think about it. At the minimum she should have a PET scan as an outpatient to fully ev aluate any metastatic disease. If she is agreeable, I can proceed with a biopsy of the mass and luz l discuss with Dr. Nicolas. Dictated By: HUGO OWENS/NTS Conf#: [id number] DID#: [id number]
[2016-06-04] MEDS: ZOLPIDEM 5 MG TAB PO PRN (00:15)
[2016-06-04 02:00] VITALS: BP 182/81; PULSE 80; RESP 18
[2016-06-04] MEDS ORDERED: hydrALAzine 20 MG INJ IV PRN (02:20)
[2016-06-04] MEDS: ACCUCHECK XX SCH (02:44)
[2016-06-04 03:00] VITALS: BP 153/65; PULSE 84; RESP 18
--- NOTE | 2016-06-04 07:58 | PN ---
Date/Time of Note Date/Time of Note DATE: 06/04/16 TIME: 07:57 Assessment/Plan Lines/Catheters IV C[facility]ter Type [facility]from [facility]): Saline Lock Assessment/Plan Chief Complaint/Hosp Course IMPRESSION: Mediastinal mass. RECOMMENDATIONS: I had a long discussion with the patient, this unusually large and nonhomogeneous. In my opinion it is neoplastic until proven otherwise. She needs to have a biopsy. I had a long discussion with the patient and the son. Risks and benefits were explained to them. They would like to go home and think about it. At the minimum she should have a PET scan as an outpatient to fully evaluate any metastatic disease. If she is agreeable , I can proceed with a biopsy of the mass and will discuss with Dr. Nicolas. Problems: Subjective 24 Hr Interval Summary Constitutional: improved Pain Control: mild Exam/Review of Systems Vital Signs Vitals Vital Signs Date Time Temp Pulse Resp B/P Pulse Ox O2 Delivery O2 Flow Rate FiO2 06/04/16 03:00 84 18 153/65 91 Room Air 06/03/16 21:11 97.5 Intake and Output 06/03/16 06/03/16 06/04/16 15:00 23:00 07:00 Intake Total 1680 ml 500 ml Output Total 1900 ml 500 ml Balance -220 ml 0 ml Exam ENMT: mucosa pink and moist, nl external ears & nose, nl lips & teeth, nl nasal mucosa & septum Neck: non-tender, supple Respiratory: clear to auscultation, normal air movement Cardiovascular: nl pulses, regular rate and rhythm Results Result Diagram: 06/03/1651906/03/16519 HUGO MCQUEEN MD Jun 04, 2016 07:58
[2016-06-04 08:32] VITALS: BP 141/75; RESP 20
[2016-06-04] MEDS: INSULIN ASPART [NOVOLOG] 3 ML PEN SC SCH ×4 (08:52→20:45)
[2016-06-04] MEDS: FOLIC ACID 1 MG TAB PO SCH (09:00)
[2016-06-04] MEDS: ASPIRIN (EC) 81 MG TAB PO SCH (09:00)
[2016-06-04] MEDS: SULFASALAZINE (EC) 500 MG TAB PO SCH (09:00)
[2016-06-04] MEDS: METHOTREXATE 2.5 MG TAB PO SCH ×2 (09:00→12:53)
[2016-06-04] MEDS: DICLOFENAC (EC) 75 MG TAB PO SCH ×2 (09:00→20:41)
[2016-06-04] MEDS: FAMOTIDINE 20 MG TAB PO SCH ×2 (09:00→20:40)
[2016-06-04] MEDS: CLOPIDOGREL 75 MG TAB PO SCH (09:00)
[2016-06-04] MEDS: HYDROXYCHLOROQUINE 200 MG TAB PO SCH ×2 (09:01→20:41)
[2016-06-04 11:37] VITALS: Ht 160 cm; Wt 116.9 kg
--- NOTE | 2016-06-04 13:13 | PN ---
DATE: 06/04/2016 SUBJECTIVE: Mrs. Tamayo remains stable. This morning reports no shortness of breath. She has pain in her left hip but this is improving. PHYSICAL EXAMINATION: VITAL SIGNS: Temperature 98, pulse is 78, blood pressure 141/75, O2 saturation 94% on room air. NECK: Supple. No JVD or lymphadenopathy. CARDIAC: S1, S2, no added sounds or murmurs. CHEST: Diminished air entry bilaterally. ABDOMEN: Obese, soft, nontender. No guarding or rebound. EXTREMITIES: No cyanosis, clubbing, 1+ edema. NEUROLOGIC: Generalized weakness. LABORATORY DATA: White count 10.6, hemoglobin 13.7, platelets of 245. IMAGING: Brain MRI was performed shows no significant abnormalities. CT chest, as stated, showed s ubcarinal mass 5 x 3 x 3.5 cm. IMPRESSION AND PLAN: 1. Left hip pain possibly arthritic. 2. New finding of lung mass concerning for malignancy given extensive tobacco history. The patient today is declining inpatient workup. She wishes to go home and then pursue evaluation of lung mass as an outpatient. She will need PET scan and pulmonary function testing prior to mediastinoscopy. From a pulmonary standpoint she can go whenever stable to ambulate. Dictated By: MINH MARCUS/KIN Conf#: [id number] DID#: [id number]
[2016-06-04] MEDS: HYDROCODONE/APAP (10/325) TAB PO PRN (13:43)
--- NOTE | 2016-06-04 15:24 | PDOCDIS ---
Discharge Instructions CONDITION Patient Condition: Fair HOME CARE INSTRUCTIONS: Diet Instructions: Reduced Calorie ACTIVITY: Activity Restrictions: Special Exercises FOLLOW UP/APPOINTMENTS Appointments Follow-up with cardiothoracic surgeon as outpatient after PET scan Follow up with tax record clerk oncologist as outpatient Follow up with wharf tender head for pulmonary function test as outpatient OTHER ORDERS: Other Orders: PET scan as outpatient PFT as outpatient MARCO MONTGOMERY MD Jun 04, 2016 15:24
--- NOTE | 2016-06-04 15:27 | CONS ---
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 She was incidentally found to have a subcarinal mass measuring 5.6 x 3.5 x 3.[address] abdomen/pelvis without contrast demonstrated mild to moderate chronic compression fracture at L4 and an additional lucency involving the posterior aspect L4 vertebral body with sclerotic margin that may represent additional degenerative changes or lytic lesion, with recommendation for bone scan or MRI lumbar spine. MRI spine shows acute compression fracture deformities of L2 and L4. - MRI brain without intracranial mets - Will request outpatient PET/CT. L2 and L4 compression fractures likely not related to lung mass though will see what PET/CT shows. - Per Dr. Liu and Dr. Quinn, plan for PET as outpatient and PFTs then mediastinoscopy and biopsy. - Case management order placed for auth for outpatient PET/CT and appt to see Dr. Lashae Anderson or myself as an outpatient - Will need to obtain [place] records regarding prior vulvar cancer Problems: Consultation Date/Type/Reason Admit Date/Time Jun 02, 2016 at 21:45 Initial Consult Date 06/03/16 Type of Consultation: Hematology/Oncology 24 HR Interval Summary Free Text/Dictation No overnight events. Patient continues to have hip pain but otherwise has no complaints. She is now agreeable to biopsy of subcarinal mass as inpatient. Exam/Review of Systems Vital Signs Vitals Vital Signs Date Time Temp Pulse Resp B/P Pulse Ox O2 Delivery O2 Flow Rate FiO2 06/04/16 08:32 97.8 78 20 141/75 94 06/04/16 03:00 Room Air Intake and Output 06/03/16 06/03/16 06/04/16 15:00 23:00 07:00 Intake Total 1680 ml 500 ml Output Total 1900 ml 500 ml Balance -220 ml 0 ml Exam Constitutional: alert, oriented Head: atraumatic, normocephalic Eyes: nl conjunctiva Neck: non-tender, supple Respiratory: clear to auscultation Cardiovascular: regular rate and rhythm Gastrointestinal: non-tender, soft Musculoskeletal: other (s/p right toes amputation) Results Result Diagram: 06/03/16 0520 06/03/16 0520 Results 24 hrs Laboratory Tests Test 06/03/16 16:35 06/03/16 21:01 06/04/16 02:40 06/04/16 07:30 Bedside Glucose 176 252 H 214 226 H Test 06/04/16 11:42 Bedside Glucose 194 Medications Medications Current Medications Aspirin (Halfprin) 81 mg DAILY PO Last administered on 06/04/16 09:00; Admin Dose 81 MG; Start 06/03/16 at 09:00 Clopidogrel Bisulfate (plaVIX) 75 mg DAILY PO Last administered on 06/04/16 09 :00; Admin Dose 75 MG; Start 06/03/16 at 09:00 Diclofenac Sodium (Voltaren) 75 mg BID PO Last administered on 06/04/16 09:00 ; Admin Dose 75 MG; Start 06/03/16 at 09:00 Folic Acid (Folic Acid) 1 mg DAILY PO Last administered on 06/04/16 09:00; Admin Dose 1 MG; Start 06/03/16 at 09:00 Hydroxychloroquine Sulfate (Plaquenil) 200 mg BID PO Last administered on 09:01; Admin Dose 200 MG; Start 06/03/16 at 09:00 Methotrexate (Methotrexate) 15 mg Fr@09 PO Last administered on 06/04/16 12:53 ; Admin Dose 15 MG; Start 06/04/16 at 09:00 Sulfasalazine (Azulfidine (Entab)) 2,000 mg DAILY PO Last administered on 09:00; Admin Dose 2,000 MG; Start 06/03/16 at 09:00 Famotidine (Pepcid) 20 mg BID PO Last administered on 06/04/16 09:00; Admin Dose 20 MG; Start 06/03/16 at 09:00 Diagnostic Test (Pha) (Accucheck) 1 ea 02 XX Last administered on 06/04/16 02: 44; Admin Dose 1 EA; Start 06/03/16 at 02:00 Acetaminophen (Tylenol Tab) 650 mg Q6H PRN PO PAIN AND OR ELEVATED TEMP; Start 06/03/16 at 00:30 Morphine Sulfate (morphine) 4 mg Q4H PRN IV PAIN Last administered on 06/03/16 19:27; Admin Dose 4 MG; Start 06/03/16 at 00:30 Acetaminophen/ Hydrocodone Bitart ([place] (10325)) 1 tab Q6H PRN PO PAIN Last administered on 06/04/16 13:43; Admin Dose 1 TAB; Start 06/03/16 at 00:30 Ondansetron HCl (Zofran Inj) 4 mg Q6H PRN IV NAUSEA AND/OR VOMITING; Start 06/03 at 00:30 Miscellaneous Information 1 ea NOTE XX ; Start 06/03/16 at 01:00 Glucose (Glutose) 15 gm Q15M PRN PO DECREASED GLUCOSE; Start 06/03/16 at 01:00 Glucose (Glutose) 22.5 gm Q15M PRN PO DECREASED GLUCOSE; Start 06/03/16 at 01:00 Dextrose (D50w Syringe) 25 ml Q15M PRN IV DECREASED GLUCOSE; Start 06/03/16 at 01:00 Dextrose (D50w Syringe) 50 ml Q15M PRN IV DECREASED GLUCOSE; Start 06/03/16 at 01:00 Glucagon (Glucagen) 1 mg Q15M PRN IM DECREASED GLUCOSE; Start 06/03/16 at 01:00 Glucose (Glutose) 15 gm Q15M PRN BUCCAL DECREASED GLUCOSE; Start 06/03/16 at 01: 00 Insulin Glargine (Lantus) 20 unit HS SC Last administered on 06/03/16 21:05; Admin Dose 20 UNIT; Start 06/03/16 at 21:00 Hydralazine HCl (Apresoline) 10 mg Q4H PRN IV ELEVATED BLOOD PRESSURE Last administered on 06/04/16 02:36; Admin Dose 10 MG; Start 06/04/16 at 02:20 TOJONATHAN MD Jun 04, 2016 15:27
--- NOTE | 2016-06-04 16:42 | DS ---
DATE OF ADMISSION: 06/02/2016 DATE OF DISCHARGE: 06/04/2016 CONSULTANTS: 1. Dr. Dante Alejandre. 2. Dr. Lori Pierce. 3. Dr. Jacob Quinn. PROCEDURES: Physical therapy. IMAGING: CT angiogram of the chest, abdomen and pelvis with the finding of thoracic abdominal aorta normal in caliber without evidence of aneurysm or dissection. Atherosclerotic mural plaque is seen within the distal descending thoracic aorta and through the abdominal aorta with atherosclerotic ca lcifications seen through the iliac arteries and proximal femoral arteries. There is a thin band-li ke narrowing of the takeoff of the celiac tree, which is narrowed by approximately 50% of diameter. The superior mesenteric artery, inferior mesenteric artery and renal arteries are patent. The hea rt is not enlarged, but there is left ventricular hypertrophy. The pulmonary arteries appeared connors nt. There is a subcarinal mass measuring 5.6 x 3.5 x 3.4 cm; 1 cm short diameter nodes are seen wit hin the precarinal region, both superior and inferior. 7 mm short diameter bilateral axillary nodes are evident. There is pulmonary interstitial disease and increased interstitial markings seen at th e periphery of the lung field with a small area of honeycombing seen in the inferior aspect of poste rior segment of the right upper lobe compatible with pulmonary fibrosis. Mild hepatomegaly. No taylor dence of bowel obstruction or inflammation. Status post hysterectomy. Compression fracture deformi ties involving L4 and to a lesser extent L2, unchanged. DISCHARGE DIAGNOSES: 1. Subcarinal mass measuring 5.6 x 3.5 x 3.4 cm. District Administrator/oncologist, horse rancher and cardio thoracic surgeon has been consulted. At this time, the patient will be set up for a PET scan and pu lmonary function tests as outpatient prior to biopsy. The patient is a very high risk for biopsy be cause the biopsy will be done by VATS and the patient will need PET scan prior to this procedure. 2. Pulmonary fibrosis. Pulmonology was consulted. Continue medical management. 3. Chronic compression fracture of L4. The patient will be follow up with neurosurgery as outpatie nt. Continue physical therapy. As stated above, patient is a high risk for any surgical interventi on at this time. 4. Lower extremity pain, possibly secondary to L4 compression fracture. Continue physical therapy. Follow up with neurosurgery as outpatient. 5. Obstructive sleep apnea. The patient will need pulmonary function tests as outpatient. 6. Morbid obesity. The patient has been placed on low calorie diet. 7. Diabetes mellitus type 2. Continue insulin, low carbohydrate diet and insulin sliding scale. 8. Hypertension. Continue medical management. 9. History of peripheral vascular disease. Continue medical management. MEDICATIONS: 1. [place] 10/325. 2. Tylenol. 3. Aspirin 81 mg 4. Plavix 75 mg. 5. Diclofenac 75 mg. 6. Pepcid 20 mg 7. Folic acid 1 mg. 8. Plaquenil 200 mg. 9. Insulin sliding scale. 10. Lantus 28 units. 11. Methotrexate 15 mg. 12. Sulfasalazine 2000 mg. 13. Omeprazole 40 mg. 14. Levaquin 500 mg. FOLLOWUP: 1. Follow up with cardiothoracic surgeon after PET scan. 2. Follow up with horse rancher as outpatient. 3. Follow up with instrument room technician/oncologist as outpatient. 4. Follow up with neurosurgery as outpatient. 5. PET scan as outpatient. 6. Pulmonary function tests as outpatient. 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 The patient has been having this discomfort for the past several months with worsening of the pain and discomfort for the past 8 days. The patient has been having difficulty ambulating, significant severe pain, she called 911 and was brought into the emergency room via EMS. She described the pain as stabbing, shooting pain worse with any type of movement. The patient has been a [facility], although recently patient c hanged her insurance and is not able to follow up with the [facility] any more. Upon arrival to [facility] emergency room, the patient had a CT of the chest which showed a subcarinal mass with other nodes superior and inferiorly and bilateral axillary nodes, pulmonary fibrosis. Global Project Manager cardiothor acic surgeon and instrument room technician/oncologist were consulted. After evaluation by the cardiothoracic montanez rgeanahy and horse rancher, it was recommended that patient will need a PET scan and pulmonary function tests prior to any surgical procedures, such as the biopsy. The patient is at very high risk for a ny surgical intervention, such as the biopsy of the nodes secondary to this will be a difficult proc edure and may need VATS. Therefore, this was discussed with the patient and patient will be set up for a PET scan as outpatient and pulmonary function tests by the horse rancher. The patient also rosas s an L4 fracture which is chronic and she has been on pain medication in that regard. The patient w as placed on Lantus insulin sliding scale, low carbohydrate diet for diabetes mellitus. With regard to her hypertension, her blood pressure is mildly controlled on metoprolol. The patient was seen a nd evaluated by horse rancher for her history of pulmonary fibrosis. She has not required any oxyge n during this course of hospitalization, though she has been placed on breathing treatments and will she continue methotrexate and Plaquenil. At this time, patient is in a stable/fair condition for d ischarge to a [place] [facility] facility. The reason that the patient is being transferred to a [facility] nursing facility is that all the procedures stated above, such as PET scan, pulmonary function te sts and the followups need to be done prior to the patient seen and evaluated by cardiothoracic surg cha for her upcoming procedure for the biopsy and VATS. LABORATORY: WBC 10.6, hemoglobin 13.7, hematocrit 39.9, platelets 245. Sodium 138, potassium 4.0, chloride 102, bicarbonate 26, BUN 15, creatinine 0.49, glucose 247. LFTs are within normal limits. Dictated By: MARCO MONTGOMERY MD PN/NTS Conf#: [id number] DID#: [id number] CC: Group;*EndCC*
[2016-06-04] MEDS: METOPROLOL 25 MG TAB PO SCH (20:40)
[2016-06-04] MEDS: INSULIN GLARGINE [LANtus] 3 ML PEN SC SCH (20:42)
[2016-06-04 20:50] VITALS: BP 170/88; RESP 20
[2016-06-04 23:09] VITALS: BP 143/65
[2016-06-05] MEDS: ACCUCHECK XX SCH (02:00)
[2016-06-05] MEDS: INSULIN ASPART [NOVOLOG] 3 ML PEN SC SCH ×2 (08:00→12:36)
[2016-06-05 08:15] VITALS: BP 135/78; RESP 16
[2016-06-05] MEDS: HYDROCODONE/APAP (10/325) TAB PO PRN ×2 (09:02→16:14)
[2016-06-05] MEDS: HYDROXYCHLOROQUINE 200 MG TAB PO SCH (09:04)
[2016-06-05] MEDS: SULFASALAZINE (EC) 500 MG TAB PO SCH (09:04)
[2016-06-05] MEDS: FOLIC ACID 1 MG TAB PO SCH (09:04)
[2016-06-05] MEDS: ASPIRIN (EC) 81 MG TAB PO SCH (09:05)
[2016-06-05] MEDS: FAMOTIDINE 20 MG TAB PO SCH (09:05)
[2016-06-05] MEDS: CLOPIDOGREL 75 MG TAB PO SCH (09:05)
[2016-06-05] MEDS: DICLOFENAC (EC) 75 MG TAB PO SCH (09:05)
[2016-06-05] MEDS: METOPROLOL 25 MG TAB PO SCH (09:06)
--- NOTE | 2016-06-05 12:46 | DS ---
DATE OF ADMISSION: 06/04/2016 DATE OF DISCHARGE: 06/05/2016 CONSULTANTS: 1. Dr. Howell. 2. Dr. Lori Pierce. 3. Dr. Jacob Quinn. Please see my discharge summary which was done by me on 06/04/2016. DISCHARGE DIAGNOSES: 1. Subcranial mass. 2. Pulmonary fibrosis. 3. Chronic compression fracture of L4. 4. Lower extremity pain. 5. Obstructive sleep apnea. 6. Morbid obesity. 7. Diabetes mellitus type 2. 8. Hypertension. 9. History of peripheral vascular disease. MEDICATION: 1. [place]. 2. Tylenol. 3. Aspirin. 4. Plavix. 5. Diclofenac. 6. Pepcid. 7. Folic acid. 8. Plaquenil. 9. Insulin sliding scale. 10. Lantus. 11. Methotrexate. 12. Sulfasalazine. 13. Omeprazole. 14. Levaquin. ALLERGIES: PENICILLIN. HOSPITAL COURSE: This is a 71-year-old female with a past medical history of hypertension, diabetes mellitus, old spinal fracture, peripheral vascular disease, amputation of the toe on the right foot , and pulmonary fibrosis, who presented to [facility] secondary to having left low er quadrant abdominal pain associated with lower back pain and hip pain. [facility] the past several months and has been in and out of a [facility] status post her lumbar surgeries, although on 06/02/2016 the patient's low back pain has been worsening. Therefore, she called 911 and was brought into the emergency room. A CT angiogram of the chest was done which shows a subcranial mass measuring 5.6 x 2.5 x 2.4 cm. The patient was s een and evaluated by a biomedical repair technician, hematology/oncologist and a cardiothoracic surgeon. As per recommendation of the cardiothoracic surgeon and biomedical repair technician, the patient will need a PET scan a nd needs a pulmonary function test as an outpatient prior to any biopsy, which is going to be at a h igh-risk biopsy secondary to the characteristic of the mass. This was explained to the patient. e patient was set up to be transferred to a half-way facility, although she and her son, Ramirez barrios, both refused transfer to a half-way facility. They have been adamant that they woul d like to follow up with their appointment as outpatient themselves. I have explained the importanc e of these followups with the cardiothoracic surgeon, the biomedical repair technician/hematology/oncologist, PET s can, and pulmonary function tests to be done and these appointment have been requested to be set up with the rifle case repairer on 06/04/2016 and all the referrals has been sent. The patient has been notif ied regarding this matter, although as stated above, the patient has refused to be transferred to a half-way facility and has been adamant that she wants to go home and wants to follow up with these appointments herself. I have explained to her in detail in case she does not hear back from [facility] rifle case repairer for these appointments, she needs to contact them on Tuesday, 06/08, regarding the appointment for the PET scan, pulmonary function tests and other followups. CONDITION AT THE TIME OF DISCHARGE: Stable. Dictated By: MARCO DOYLE/KIN Conf#: [id number] DID#: [id number]
--- NOTE | 2016-06-05 18:27 | CONS ---
Date/Time of Note Date/Time of Note DATE: 06/05/16 TIME: 18:24 Consult Date/Type/Reason Admit Date/Time Jun 04, 2016 at 17:06 Initial Consult Date 06/03/16 Type of Consultation: Pulm Subjective No events. Objective Vital Signs Date Time Temp Pulse Resp B/P Pulse Ox O2 Delivery O2 Flow Rate FiO2 06/05/16 08:15 98.5 70 16 135/78 98 06/04/16 03:00 Room Air Intake and Output 06/04/16 06/04/16 06/05/16 15:00 23:00 07:00 Intake Total 680 ml 540 ml Balance 680 ml 540 ml HEENT: Neck supple; no JVD; no LAD CVS: RRR, S1 and S2 CHEST: Clear ABD: Soft, NT, + BS EXT: No c/c/e Results/Medications Result Diagram: 06/03/1651906/03/16519 Results 24 hrs Laboratory Tests Test 06/04/16 20:38 06/05/16 08:51 06/05/16 12:01 Bedside Glucose 145 184 234 H Medications Current Medications Aspirin (Halfprin) 81 mg DAILY PO Last administered on 06/05/16 09:05; Admin Dose 81 MG; Start 06/03/16 at 09:00 Clopidogrel Bisulfate (plaVIX) 75 mg DAILY PO Last administered on 06/05/16 09 :05; Admin Dose 75 MG; Start 06/03/16 at 09:00 Diclofenac Sodium (Voltaren) 75 mg BID PO Last administered on 06/05/16 09:05 ; Admin Dose 75 MG; Start 06/03/16 at 09:00 Folic Acid (Folic Acid) 1 mg DAILY PO Last administered on 06/05/16 09:04; Admin Dose 1 MG; Start 06/03/16 at 09:00 Hydroxychloroquine Sulfate (Plaquenil) 200 mg BID PO Last administered on 09:04; Admin Dose 200 MG; Start 06/03/16 at 09:00 Methotrexate (Methotrexate) 15 mg Fr@09 PO Last administered on 06/04/16 12:53 ; Admin Dose 15 MG; Start 06/04/16 at 09:00 Sulfasalazine (Azulfidine (Entab)) 2,000 mg DAILY PO Last administered on 09:04; Admin Dose 2,000 MG; Start 06/03/16 at 09:00 Famotidine (Pepcid) 20 mg BID PO Last administered on 06/05/16 09:05; Admin Dose 20 MG; Start 06/03/16 at 09:00 Diagnostic Test (Pha) (Accucheck) 1 ea 02 XX Last administered on 06/04/16 02: 44; Admin Dose 1 EA; Start 06/03/16 at 02:00 Acetaminophen (Tylenol Tab) 650 mg Q6H PRN PO PAIN AND OR ELEVATED TEMP; Start 06/03/16 at 00:30 Morphine Sulfate (morphine) 4 mg Q4H PRN IV PAIN Last administered on 06/03/16 19:27; Admin Dose 4 MG; Start 06/03/16 at 00:30 Acetaminophen/ Hydrocodone Bitart ([place] (10)) 1 tab Q6H PRN PO PAIN Last administered on 06/05/16 16:14; Admin Dose 1 TAB; Start 06/03/16 at 00:30 Ondansetron HCl (Zofran Inj) 4 mg Q6H PRN IV NAUSEA AND/OR VOMITING; Start 06/03 at 00:30 Miscellaneous Information 1 ea NOTE XX ; Start 06/03/16 at 01:00 Glucose (Glutose) 15 gm Q15M PRN PO DECREASED GLUCOSE; Start 06/03/16 at 01:00 Glucose (Glutose) 22.5 gm Q15M PRN PO DECREASED GLUCOSE; Start 06/03/16 at 01:00 Dextrose (D50w Syringe) 25 ml Q15M PRN IV DECREASED GLUCOSE; Start 06/03/16 at 01:00 Dextrose (D50w Syringe) 50 ml Q15M PRN IV DECREASED GLUCOSE; Start 06/03/16 at 01:00 Glucagon (Glucagen) 1 mg Q15M PRN IM DECREASED GLUCOSE; Start 06/03/16 at 01:00 Glucose (Glutose) 15 gm Q15M PRN BUCCAL DECREASED GLUCOSE; Start 06/03/16 at 01: 00 Insulin Glargine (Lantus) 20 unit HS SC Last administered on 06/04/16 20:42; Admin Dose 20 UNIT; Start 06/03/16 at 21:00 Hydralazine HCl (Apresoline) 10 mg Q4H PRN IV ELEVATED BLOOD PRESSURE Last administered on 06/04/16 02:36; Admin Dose 10 MG; Start 06/04/16 at 02:20 Metoprolol Tartrate (Lopressor) 25 mg BID PO Last administered on 06/05/16 09: 06; Admin Dose 25 MG; Start 06/04/16 at 21:00 Assessment/Plan Additional Assessment/Plan IMP: 1. Subcarinal Mass--homogeneous concerning SCC 2. Emphysema RECS: 1. Would recommend completion of staging with CT abdomen/pelvis 2. PET 3. Would benefit from bronchoscopy with EBUS IZA BAJWA MD Jun 05, 2016 18:27
== END 2016-06-05 18:25 | disposition home or self-care (01) | DRG 552 ==
LOC: FTE 12:58 → UNDOADMOB 21:44 → PP2 21:44 → UNDOADMOB 23:03 → OBSVTOIN 06-04 17:06
PROVIDERS: ADMIT Internal Medicine; ATTEND Internal Medicine
DX: M54.5 Low back pain (principal); J84.10 Pulmonary fibrosis, unspecified; Z68.42 Body mass index [BMI] 45.0-49.9, adult; M48.56XA Collapsed vertebra, not elsewhere classified, lumbar region, initial encounter for fracture; E66.01 Morbid (severe) obesity due to excess calories; M25.552 Pain in left hip; I10 Essential (primary) hypertension; E11.9 Type 2 diabetes mellitus without complications; M51.26 Other intervertebral disc displacement, lumbar region; G47.33 Obstructive sleep apnea (adult) (pediatric); I16.0 Hypertensive urgency; Z87.891 Personal history of nicotine dependence; M06.9 Rheumatoid arthritis, unspecified; Z89.421 Acquired absence of other right toe(s); R10.32 Left lower quadrant pain; Z85.44 Personal history of malignant neoplasm of other female genital organs; D38.3 Neoplasm of uncertain behavior of mediastinum
CPT/HCPCS: 36415; 70551; 71275; 72158; 74176; 75635; 80053; 81001; 81003; 82962; 83735; 84100; 85025; 96374; 96375; G0378; A4310; J0360; J1170; J1815; J2270; J2405; Q9967